=== PATIENT | male | born 1975 | race African-American/Black ===

== ENCOUNTER 2019-04-26 06:42 | Emergency (ER) | payer SELFPAY ==
[~2019-04-26] VITALS: Ht 175.3 cm; Wt 104.0 kg
[2019-04-26 07:37] LABS: BASOPHILS % 0.4 % (0.0-2.0); EOSINOPHILS % 0.3 % (0.0-5.0); HEMATOCRIT. 42.7 % (42.0-52.0); HEMOGLOBIN. 14.2 g/dL (14.0-18.0); LYMPHOCYTES % 12.1 % (20.0-50.0); MEAN CORPUSCULAR HEMOGLOBIN 29.5 pg (28.0-32.0); MEAN CORPUSCULAR VOLUME 88.8 fL (80.0-94.0); MEAN PLATELET VOLUME 8.1 fl (7.4-10.4); MONOCYTES % 8.1 % (2.0-8.0); NEUTROPHILS % 79.1 % (40.0-76.0); PLATELET 246 x1000/uL (130-400); RED BLOOD CELL COUNT 4.81 mill/uL (4.7-6.1)
[2019-04-26 07:43] LABS: CHLORIDE 104 mEq/L (98-107)
[2019-04-26 07:46] LABS: ETHANOL BLOOD < 10 mg/dL
[2019-04-26 08:03] LABS: *AMPHETAMINES SCREEN URINE NEGATIVE (NEGATIVE); *BARBITURATES SCREEN URINE NEGATIVE (NEGATIVE); *BENZODIAZEPINES SCREEN URINE NEGATIVE (NEGATIVE); *COCAINE SCREEN URINE NEGATIVE (NEGATIVE)
[2019-04-26 08:04] LABS: CANNABINOID URINE SCREEN NEGATIVE (NEGATIVE); METHADONE URINE SCREEN NEGATIVE (NEGATIVE); OPIATES URINE SCREEN NEGATIVE (NEGATIVE); PHENCYCLIDINE URINE SCREEN PRESUMTIVE POSITIVE (NEGATIVE)
[2019-04-26 09:05] VITALS: BP 148/82
== END 2019-04-26 09:06 | disposition home or self-care (01) ==
LOC: ER 06:42
DX: F16.188 Hallucinogen abuse with other hallucinogen-induced disorder (principal)
CPT/HCPCS: 36415; 80305; 80320; 99283; G0480

== ENCOUNTER → 2019-05-02 | Emergency (ER) | payer SELFPAY ==
[~2019-05-02] VITALS: Ht 180.3 cm; Wt 100.0 kg
[~2019-05-02] MED LIST: SODIUM CHLORIDE 0.9% 1,000 ML IV ONE
[2019-05-02 11:39] VITALS: BP 146/95
== END ==
LOC: ER 11:23
DX: R07.89 Other chest pain (principal); R05 Cough; R63.1 Polydipsia; I10 Essential (primary) hypertension; E11.9 Type 2 diabetes mellitus without complications; Z98.890 Other specified postprocedural states
CPT/HCPCS: 93005; 99283; J7030